=== PATIENT | male | born 1975 | race African-American/Black ===

== ENCOUNTER 2018-08-19 10:10 | Inpatient (IN) | payer OTHER ==
[2018-08-19 10:25] VITALS: BMI 20.9
--- NOTE | 2018-08-19 11:28 | HP ---
CIWA Score Nausea/Vomitin Muscle Tremors: 4-Moderate,w/Arms Extend Anxiety: 4-Mod. Anxious/Guarded Agitation: 0-Normal Activity Paroxysmal Sweats: No Perspiration Orientation: 1-Uncertain about Date Tacttile Disturbances: 0-None Auditory Disturbances: 0-None Visual Disturbances: 0-None Headache: 2-Mild CIWA-Ar Total Score: 14 - Admission Criteria OASAS Guidelines: Admission for Medically Managed Detox: Requires at least one of the followin. CIWA greater than 12 2. Seizures within the past 24 hours 3. Delirium tremens within the past 24 hours 4. Hallucinations within the past 24 hours 5. Acute intervention needed for co occurring medical disorder 6. Acute intervention needed for co occurring psychiatric disorder 7. Severe withdrawal that cannot be handled at a lower level of care (continued vomiting, continued diarrhea, abnormal vital signs) requiring intravenous medication and/or fluids 8. Patient presents the following: CIWA greater than 12 Admission Criteria Met: Admission criteria met Admission ROS BHS - HPI Chief Complaint: I need help to stop, the craving is real strong to keep drinking, I work, I want to keep my job, things started spiraling and now I can't stop. Allergies/Adverse Reactions: Allergies Allergy/AdvReac Type Severity Reaction Status Date / Time No Known Allergies Allergy Verified 08/19/18 11:22 History of Present Illness: 43 yo gentleman here for detox from alcohol, was in rehab in 2016 in [place], did well for a while but a family tragedy triggered relapse. Does not like 12 step meetings. First time here. No seizure but did have black out and does drink a bit first thing in the morning to calm his nerves. Exam Limitations: Clinical Condition - Ebola screening Have you traveled outside of the country in the last 21 days: No (N) Have you had contact with anyone from an Ebola affected area: No Have you been sick,other than usual withdrawal symptoms: No Do you have a fever: No - Review of Systems Constitutional: Loss of Appetite, Changes in sleep, Weakness EENT: reports: No Symptoms Reported Respiratory: reports: No Symptoms reported Cardiac: reports: No Symptoms Reported GI: reports: Nausea, Poor Fluid Intake, Abdominal cramping : reports: Frequency Musculoskeletal: reports: No Symptoms Reported Integumentary: reports: Dryness Neuro: reports: Headache, Tremors Endocrine: reports: No Symptoms Reported Hematology: reports: No Symptoms Reported Psychiatric: reports: Judgement Intact, Mood/Affect Appropiate, Anxious Other Systems: Reviewed and Negative Patient History - Patient Medical History Hx Asthma: No Hx Cancer: No Hx Cardiac Disorders: No Hx Congestive Heart Failure: No Hx Hypertension: No Hx Hypercholesterolemia: No Hx Pacemaker: No HX Cerebrovascular Accident: No Hx Seizures: No Hx Diabetes: No Hx Liver Disease: No Hx Genitourinary Disorders: No Hx Sexually Transmitted Disorders: No Hx Renal Disease (ESRD): No Hx Thyroid Disease: No Hx Human Immunodeficiency Virus (HIV): No Hx Hepatitis C: No Hx Depression: No Hx Suicide Attempt: No Hx Bipolar Disorder: No Hx Schizophrenia: No - Patient Surgical History Past Surgical History: No - PPD History Previous Implant?: Yes Documented Results: Negative w/o proof Implanted On Prior R Admission?: No PPD to be Administered?: Yes - Reproductive History Patient is a Female of Child Bearing Age (11 -55 yrs old): No (male) - Smoking Cessation Smoking history: Current every day smoker Have you smoked in the past 12 months: Yes Aproximately how many cigarettes per day: 5 Initiated information on smoking cessation: Yes 'Breaking Loose' booklet given: 08/19/18 (give on floor) - Substance & Tx. History Hx Alcohol Use: Yes Hx Substance Use: No Substance Use Type: Alcohol Hx Substance Use Treatment: Yes (rehab in [place] 2015) - Substances Abused alcohol Route: Oral Frequency: Daily Amount used: 1 pint vodka, 2-3 sixteen oz beers Age of first use: 15 Date of Last Use: 08/18/18 Family Disease History - Family Disease History Family Disease History: Heart Disease: Father (,stroke, hx drug use), [place] : Mother (, hx etoh), Other: Father, Mother, Brother (four - healthy), Sister (three - healthy), Son (one - age 14), Daughter (one age 12 ) Admission Physical Exam BHS - Vital Signs Vital Signs: Vital Signs - 24 hr 08/19/18 10:24 Temperature 97.5 F L Pulse Rate 78 Respiratory 18 Rate Blood Pressure 135/83 - Physical General Appearance: Yes: Nourished, Appropriately Dressed, Moderate Distress, Tremorous, Anxious HEENTM: Yes: EOMI, Hearing grossly Normal, Normal ENT Inspection, Normocephalic , Normal Voice, Pharynx Normal Respiratory: Yes: Normal Breath Sounds, No Respiratory Distress Neck: Yes: No masses,lesions,Nodules Breast: Yes: Breast Exam Deferred Cardiology: Yes: Regular Rhythm, Regular Rate Abdominal: Yes: Flat, Soft Genitourinary: Yes: Frequency Back: Yes: Normal Inspection Musculoskeletal: Yes: full range of Motion, Gait Steady Extremities: Yes: Normal Inspection, Normal Range of Motion, Non-Tender Neurological: Yes: Alert, Normal Mood/Affect, Normal Response Integumentary: Yes: Normal Color, Dry, Warm Lymphatic: Yes: Within Normal Limits - Diagnostic (1) Alcohol dependence with uncomplicated withdrawal Current Visit: Yes Status: Acute (2) Nicotine dependence Current Visit: Yes Status: Chronic Qualifiers: Nicotine product type: cigarettes Substance use status: uncomplicated Qualified Code(s): F17.210 - Nicotine dependence, cigarettes, uncomplicated (3) Dehydration Current Visit: Yes Status: Acute Cleared for Admission [facility] - Detox or Rehab [facility] Level of Care: Medically Managed Detox Regimen/Protocol: Librium S Breath Alcohol Content Breath Alcohol Content: 0 Urine Drug Screen - Results Drug Screen Negative: Yes Inpatient Rehab Admission - Rehab Decision to Admit Inpatient rehab admission?: No
[2018-08-19] MEDS ORDERED: MENTHOL/PHENOL 1 EACH UD MM PRN (11:36)
[2018-08-19] MEDS ORDERED: IBUPROFEN 400 MG TABLET (FP) PO PRN (11:36)
[2018-08-19] MEDS ORDERED: MAGNESIUM CITRATE 300 ML BOTTLE PO PRN (11:36)
[2018-08-19] MEDS ORDERED: MAGNESIUM HYDROX 2400MG/30ML ORAL SUSPENSION 30 ML CUP PO PRN (11:36)
[2018-08-19] MEDS ORDERED: ACETAMINOPHEN 325 MG TABLET (FP) PO PRN (11:36)
[2018-08-19] MEDS ORDERED: LOPERAMIDE HCL 2 MG CAPSULE PO PRN (11:36)
[2018-08-19] MEDS ORDERED: guaiFENesin/D-METHORPHAN HB 10 ML UNIT-DOSE CUPS PO PRN (11:36)
[2018-08-19] MEDS ORDERED: chlordiazePOXIDE HCL 25 MG CAPSULE PO PRN (11:36)
[2018-08-19] MEDS ORDERED: P-EPHED 60MG/TRIPROLIDI 2.5MG TABLET PO PRN (11:36)
[2018-08-19] MEDS ORDERED: MAG HYDROX/AL HYDROX/SIMETH 30 ML UNIT-DOSE CUP PO PRN (11:36)
--- NOTE | 2018-08-19 13:22 | EKG ---
Test Reason : Blood Pressure : / mmHG Vent. Rate : 069 BPM Atrial Rate : 069 BPM P-R Int : 166 ms QRS Dur : 092 ms QT Int : 410 ms P-R-T Axes : 079 078 051 degrees QTc Int : 439 ms NORMAL SINUS RHYTHM NORMAL ECG NO PREVIOUS ECGS AVAILABLE Confirmed by KASHMIR KONG MD ([id number]) on 08/19/2018 1:21:26 PM Referred By: SUKHDEEP JOHNSON Confirmed By:KASHMIR KONG MD
[2018-08-19] MEDS: NICOTINE 14 MG/24 HOURS TOPICAL PATCH TD SCH (13:33)
[2018-08-19] MEDS: chlordiazePOXIDE HCL 25 MG CAPSULE PO SCH ×2 (17:54→22:19)
[2018-08-19 20:10] LABS: URINE APPEARANCE CLEAR; URINE BILIRUBIN NEGATIVE (<2.0 mg/dL); URINE COLOR LTYELLOW; URINE GLUCOSE (UA) NEGATIVE (NEGATIVE); URINE KETONE NEGATIVE (NEGATIVE); URINE LEUK ESTERASE NEGATIVE (NEGATIVE); URINE NITRITE NEGATIVE (NEGATIVE); URINE PROTEIN NEGATIVE (NEGATIVE); URINE UROBILINOGEN NEGATIVE mg/dL (0.2-1.0)
[2018-08-19] MEDS ORDERED: MELATONIN 5 MG TABLETS PO PRN (22:00)
[2018-08-19] MEDS: THIAMINE HCL 100 MG TABLET (FP) PO SCH (22:19)
[2018-08-20] MEDS: chlordiazePOXIDE HCL 25 MG CAPSULE PO SCH ×4 (06:24→22:18)
[2018-08-20] MEDS: PRENATAL VITAMINS W/ FOLIC ACID TABLET (FP) PO SCH (10:06)
[2018-08-20] MEDS: NICOTINE 14 MG/24 HOURS TOPICAL PATCH TD SCH (10:07)
[2018-08-20 10:37] LABS: HEMATOCRIT 42.4 % (35.4-49); HEMOGLOBIN 14.8 GM/dL (11.7-16.9); MCH 33.3 pg (25.7-33.7); MEAN CELL VOLUME 95.3 fl (80-96); MEAN PLT VOLUME 9.1 fl (7.5-11.1); PLATELET COUNT 201 K/MM3 (134-434); RBC 4.44 M/mm3 (4.00-5.60); RDW 14.6 % (11.9-15.9); WHITE BLOOD COUNT 4.6 K/mm3 (4.0-10.0)
--- NOTE | 2018-08-20 11:05 | PN ---
S CIWA - CIWA Score Nausea/Vomitin Muscle Tremors: 3 Anxiety: 2 Agitation: 0-Normal Activity Paroxysmal Sweats: 2 Orientation: 0-Oriented Tacttile Disturbances: 0-None Auditory Disturbances: 0-None Visual Disturbances: 0-None Headache: 2-Mild CIWA-Ar Total Score: 11 S Progress Note (SOAP) Subjective: PATIENT ADMITTED FOR ETOH DETOX. C/O HEADACHE, ANXIETY, SHAKES AND CHILLS. Objective: 08/20/18 11:02 Vital Signs Temperature 98.1 F 08/20/18 09:29 Pulse Rate 58 L 08/20/18 09:29 Respiratory Rate 18 08/20/18 09:29 Blood Pressure 122/76 08/20/18 09:29 O2 Sat by Pulse Oximetry (%) Laboratory Tests 08/19/18 08/20/18 15:20 08:00 WBC 4.6 RBC 4.44 Hgb 14.8 Hct 42.4 MCV 95.3 MCH 33.3 MCHC 35.0 RDW 14.6 Plt Count 201 MPV 9.1 Urine Color Ltyellow Urine Appearance Clear Urine pH 6.0 Ur Specific [place] 1.012 Urine Protein Negative Urine Glucose (UA) Negative Urine Ketones Negative Urine Blood Negative Urine Nitrite Negative Urine Bilirubin Negative Urine Urobilinogen Negative Ur Leukocyte Esterase Negative PE: ALERT AND ORIENTED X 3 SKIN WARM, MILD RESOLVING FACIAL MOISTURE-WORSE AT NIGHT EXT FULL ROM, +TREMORS AMB AD ALVIN ANXIOUS Assessment: 08/20/18 11:04 WITHDRAWALS SX Plan: CONTINUE LIBRIUM DETOX ENCOURAGE ORAL FLUIDS CONTINUE TO MONITOR CLINICALLY
[2018-08-20 11:08] LABS: ALBUMIN 3.3 g/dl (3.4-5.0); ALK PHOS 59 U/L (45-117); ANION GAP 9 MMOL/L (8-16); BILIRUBIN,TOTAL 0.6 mg/dL (0.2-1); BLOOD UREA NITROGEN 12 mg/dL (7-18); CALCIUM 8.9 mg/dL (8.5-10.1); CHLORIDE 105 mmol/L (98-107); CO2 26 mmol/L (21-32); GLUCOSE,RANDOM 213 mg/dL (74-106); POTASSIUM 4.1 mmol/L (3.5-5.1); SGOT/AST 20 U/L (15-37); SGPT/ALT 17 U/L (13-61); SODIUM 140 mmol/L (136-145); TOT PROT 6.2 g/dl (6.4-8.2)
[2018-08-20 11:33] LABS: SICKLE CELL SCREEN POSITIVE (NEGATIVE)
[2018-08-20] MEDS: THIAMINE HCL 100 MG TABLET (FP) PO SCH (22:18)
[2018-08-21] MEDS: chlordiazePOXIDE HCL 25 MG CAPSULE PO SCH ×2 (06:41→10:58)
[2018-08-21] MEDS: NICOTINE 14 MG/24 HOURS TOPICAL PATCH TD SCH (10:58)
[2018-08-21] MEDS: PRENATAL VITAMINS W/ FOLIC ACID TABLET (FP) PO SCH (10:58)
--- NOTE | 2018-08-21 13:14 | PN ---
[facility] CIWA - CIWA Score Nausea/Vomitin-No Nausea/No Vomiting Muscle Tremors: 2 Anxiety: 2 Agitation: 0-Normal Activity Paroxysmal Sweats: 2 Orientation: 0-Oriented Tacttile Disturbances: 2-Mild Itch/Numbness/Burn Auditory Disturbances: 0-None Visual Disturbances: 2-Mild Sensitivity Headache: 0-None Present CIWA-Ar Total Score: 10 BHS Progress Note (SOAP) Subjective: Chills, Tremors, Fatigue. Objective: PATIENT A & O X 3, OBSERVED AMBULATING ON UNIT. IN NO ACUTE DISTRESS. 08/21/18 13:10 Vital Signs Temperature 98.1 F 08/21/18 09:43 Pulse Rate 83 08/21/18 09:43 Respiratory Rate 16 08/21/18 09:43 Blood Pressure 113/72 08/21/18 09:43 O2 Sat by Pulse Oximetry (%) Laboratory Tests 08/19/18 08/20/18 08/20/18 15:20 07:50 07:50 WBC RBC Hgb Hct MCV MCH MCHC RDW Plt Count MPV Sickle Cell Screen Sodium 140 Potassium 4.1 Chloride 105 Carbon Dioxide 26 Anion Gap 9 BUN 12 Creatinine 1.0 Creat Clearance w eGFR > 60 Random Glucose 213 H Calcium 8.9 Total Bilirubin 0.6 AST 20 ALT 17 Alkaline Phosphatase 59 Total Protein 6.2 L Albumin 3.3 L Urine Color Ltyellow Urine Appearance Clear Urine pH 6.0 Ur Specific [place] 1.012 Urine Protein Negative Urine Glucose (UA) Negative Urine Ketones Negative Urine Blood Negative Urine Nitrite Negative Urine Bilirubin Negative Urine Urobilinogen Negative Ur Leukocyte Esterase Negative RPR Titer Nonreactive 08/20/18 08:00 WBC 4.6 RBC 4.44 Hgb 14.8 Hct 42.4 MCV 95.3 MCH 33.3 MCHC 35.0 RDW 14.6 Plt Count 201 MPV 9.1 Sickle Cell Screen Positive Sodium Potassium Chloride Carbon Dioxide Anion Gap BUN Creatinine Creat Clearance w eGFR Random Glucose Calcium Total Bilirubin AST ALT Alkaline Phosphatase Total Protein Albumin Urine Color Urine Appearance Urine pH Ur Specific [place] Urine Protein Urine Glucose (UA) Urine Ketones Urine Blood Urine Nitrite Urine Bilirubin Urine Urobilinogen Ur Leukocyte Esterase RPR Titer LABS NOTED. RESULT OF SICKLE CELL SCREEN NOTED. PATIENT REPORTS HISTORY OF POSITIVE SICKLE CELL TRAIT. 08/21/18 16:28 Assessment: 08/21/18 13:10 WITHDRAWAL SYMPTOMS. Plan: CONTINUE DETOX. BGM ACBK FOR ELEVATED ADMISSION GLUCOSE LEVEL. INCREASE DAILY PO FLUID INTAKE.
[2018-08-21] MEDS: chlordiazePOXIDE 5 MG CAPSULE PO SCH ×2 (17:41→22:28)
[2018-08-21] MEDS: THIAMINE HCL 100 MG TABLET (FP) PO SCH (22:29)
[2018-08-22] MEDS: chlordiazePOXIDE 5 MG CAPSULE PO SCH ×2 (05:25→10:07)
[2018-08-22] MEDS: PRENATAL VITAMINS W/ FOLIC ACID TABLET (FP) PO SCH (10:07)
[2018-08-22] MEDS: NICOTINE 14 MG/24 HOURS TOPICAL PATCH TD SCH (10:07)
--- NOTE | 2018-08-22 12:58 | PN ---
BHS Progress Note (SOAP) Subjective: Patient denies current Withdrawal / Detox symptoms and reports that he feels well overall. Objective: PATIENT A & O X 3, OBSERVED AMBULATING ON UNIT. IN NO ACUTE DISTRESS. 08/22/18 12:57 Vital Signs Temperature 100.6 F H 08/22/18 09:42 Pulse Rate 91 H 08/22/18 09:42 Respiratory Rate 18 08/22/18 09:42 Blood Pressure 127/87 08/22/18 09:42 O2 Sat by Pulse Oximetry (%) Laboratory Tests 08/19/18 08/20/18 08/20/18 15:20 07:50 07:50 WBC RBC Hgb Hct MCV MCH MCHC RDW Plt Count MPV Sickle Cell Screen Sodium 140 Potassium 4.1 Chloride 105 Carbon Dioxide 26 Anion Gap 9 BUN 12 Creatinine 1.0 Creat Clearance w eGFR > 60 POC Glucometer Random Glucose 213 H Calcium 8.9 Total Bilirubin 0.6 AST 20 ALT 17 Alkaline Phosphatase 59 Total Protein 6.2 L Albumin 3.3 L Urine Color Ltyellow Urine Appearance Clear Urine pH 6.0 Ur Specific [place] 1.012 Urine Protein Negative Urine Glucose (UA) Negative Urine Ketones Negative Urine Blood Negative Urine Nitrite Negative Urine Bilirubin Negative Urine Urobilinogen Negative Ur Leukocyte Esterase Negative RPR Titer Nonreactive 08/20/18 08/22/18 08:00 05:27 WBC 4.6 RBC 4.44 Hgb 14.8 Hct 42.4 MCV 95.3 MCH 33.3 MCHC 35.0 RDW 14.6 Plt Count 201 MPV 9.1 Sickle Cell Screen Positive Sodium Potassium Chloride Carbon Dioxide Anion Gap BUN Creatinine Creat Clearance w eGFR POC Glucometer 106 Random Glucose Calcium Total Bilirubin AST ALT Alkaline Phosphatase Total Protein Albumin Urine Color Urine Appearance Urine pH Ur Specific [place] Urine Protein Urine Glucose (UA) Urine Ketones Urine Blood Urine Nitrite Urine Bilirubin Urine Urobilinogen Ur Leukocyte Esterase RPR Titer LABS NOTED. Assessment: 08/22/18 12:57 WITHDRAWAL SYMPTOMS. Plan: CONTINUE DETOX. PATIENT SCHEDULED FOR D/C TOMORROW.
[2018-08-22] MEDS: chlordiazePOXIDE HCL 10 MG CAPSULE PO SCH ×2 (17:35→22:16)
[2018-08-22] MEDS: THIAMINE HCL 100 MG TABLET (FP) PO SCH (22:16)
[2018-08-23] MEDS: chlordiazePOXIDE HCL 10 MG CAPSULE PO SCH (05:24)
[2018-08-23 09:10] VITALS: BP 123/87; PULSE 78; TEMP 99.5
--- NOTE | 2018-08-23 11:40 | DS ---
[facility] Detox Discharge Summary Admission Date: 08/19/18 Discharge Date: 08/23/18 - History Present History: Alcohol Dependence Pertinent Past History: pt admitted for alcohol detox- completed successfully. Pt states would like to go to rehab, for now going home and does not need medications - Physical Exam Results Vital Signs: Vital Signs Temperature 99.5 F 08/23/18 09:09 Pulse Rate 78 08/23/18 09:09 Respiratory Rate 18 08/23/18 09:09 Blood Pressure 123/87 08/23/18 09:09 O2 Sat by Pulse Oximetry (%) - Treatment Hospital Course: Detox Protocol Followed, Detoxed Safely, Responded well, Discharged Condition Good - Medication Discharge Medications: Ambulatory Orders NK [No Known Home Medication] 08/19/18 - AMA Did Patient Leave Against Medical Advice: No
== END 2018-08-23 09:48 | disposition home or self-care (01) | DRG 775 ==
LOC: YASAS 10:10 → Y6N 12:26
PROVIDERS: ADMIT Surgery; ATTEND Surgery
PROC: HZ2ZZZZ Detoxification Services for Substance Abuse Treatment (ICD-10-PCS; principal; 2018-08-19)
DX: F10.230 Alcohol dependence with withdrawal, uncomplicated (principal); F17.210 Nicotine dependence, cigarettes, uncomplicated; E86.0 Dehydration
CPT/HCPCS: 36415; 80053; 81003; 82962; 83021; 85027; 85660; 86593; 93005; 93010